=== PATIENT | male | born 2000 | race Hispanic/Latino ===

== ENCOUNTER 2022-07-01 17:14 | Emergency (ER) | payer SELFPAY ==
--- NOTE | ~2022-07-01 | XR_ITS ---
XR abdomen/kub 1V DATE: 07/01/2022 17:53 INDICATION: Possible rectal foreign body TECHNIQUE: AP projection, 2 views COMPARISON: None FINDINGS: No radiopaque foreign body of the abdominal or pelvic areas is noted. No evidence of bowel obstruction. The psoas shadows are intact. No visceromegaly. IMPRESSION: No radiopaque foreign body Reviewed, dictated and finalized at [facility] Reviewed, dictated and finalized at [facility] ANALYST IMPRESSION: No radiopaque foreign body
[2022-07-01 17:18] VITALS: BP 152/100; PULSE 117; RESP 14; TEMP 36.7; O2SAT 99
--- NOTE | 2022-07-01 17:28 | ED.GENADULT ---
HPI - General Adult General Chief complaint: Skin/Abscess/Foreign Body Stated complaint: prisoner in custody - requesting xray Time Seen by Provider: 07/01/22 17:17 History of Present Illness HPI narrative: 22-year-old male presented to the emergency department for evaluation of a suspected rectal foreign body. [facility] was [facility] and a suspected foreign body was visualized on the body scan. This was thought to be a button from a shirt. Patient declines any ingestion or rectal insertion of a button Related Data Allergies Allergy/AdvReac Type Severity Reaction Status Date / Time No Known Allergies Allergy Verified 07/01/22 17:15 Review of Systems Review of Systems: CONSTITUTIONAL: Denies fever, chills, or sweats. EYES: Denies visual changes, redness, or discharge. ENT: Denies rhinorrhea, congestion, sore throat, or otalgia. CARDIOVASCULAR: Denies chest pain, palpitations, or edema. RESPIRATORY: Denies cough or dyspnea. GASTROINTESTINAL: Denies abdominal pain, nausea, vomiting, or diarrhea. GENITOURINARY: Denies dysuria or hematuria. SKIN: Denies rash or itching. MUSCULOSKELETAL: Denies back pain, joint pain, or myalgia. NEUROLOGIC: Denies headache, numbness, or weakness. Course Course Emergency Course: X-ray showed no evidence of a rectal foreign body. Patient was updated on the results of his extremities. Patient denied any complaints at this time. Patient was discharged into police custody. Vital Signs Vital signs: Vital Signs Temperature 98.1 F 07/01/22 17:18 Pulse Rate 117 H 07/01/22 17:18 Respiratory Rate 14 07/01/22 17:18 Blood Pressure 152/100 H 07/01/22 17:18 Pulse Oximetry 99 07/01/22 17:18 Oxygen Delivery Room Air 07/01/22 17:18 Temperature 98.1 F 07/01/22 17:18 Pulse Rate 117 H 07/01/22 17:18 Respiratory Rate 14 07/01/22 17:18 Blood Pressure 152/100 H 07/01/22 17:18 Pulse Oximetry 99 07/01/22 17:18 Oxygen Delivery Room Air 07/01/22 17:18 Medical Decision Making Vital Signs Vital Signs: Vital Signs Temperature 98.1 F 07/01/22 17:18 Pulse Rate 117 H 07/01/22 17:18 Respiratory Rate 14 07/01/22 17:18 Blood Pressure 152/100 H 07/01/22 17:18 Pulse Oximetry 99 07/01/22 17:18 Oxygen Delivery Room Air 07/01/22 17:18 Temperature 98.1 F 07/01/22 17:18 Pulse Rate 117 H 07/01/22 17:18 Respiratory Rate 14 07/01/22 17:18 Blood Pressure 152/100 H 07/01/22 17:18 Pulse Oximetry 99 07/01/22 17:18 Oxygen Delivery Room Air 07/01/22 17:18 Imaging Data Radiologist's impression: Impressions Abdomen X-Ray 07/01/22 18:35 IMPRESSION: No radiopaque foreign body Discharge Plan Discharge Clinical Impression: No foreign body found on evaluation Patient Disposition: Home, Self-Care Condition: Stable Instructions: Antibiotic Form Additional Instructions: Have close follow-up with your primary care physician as needed. Follow-up/Referrals: PHYSICIAN,FIELD MACHINIST [Primary Care Provider] -
== END 2022-07-01 18:58 ==
PROVIDERS: Emergency Provider Emergency Medicine
DX: Z03.823 Encounter for observation for suspected inserted (injected) foreign body ruled out (principal)
CPT/HCPCS: 74018; 99283